=== PATIENT | male | born 1955 | race Caucasian/White ===

== ENCOUNTER 2016-09-23 17:07 | Emergency (ER) | payer OTHER ==
[~2016-09-23] VITALS: Ht 193 cm; Wt 107.5 kg
[~2016-09-23 17:07] MED LIST: ACID REDUCER 1150 MG PO; ADVAIR 250/501 DISK IH; ADVAIR HFA120 INHAL1 IH; AMIODARONE HCL200 MG PO; AMOX TR-K CLV1 EAC4 PO; ASPIR-LOW81 MG PO; ASPIR-TRIN325 M1 PO; ASPIRIN EC325 MG PO; ASPIRIN325 MG PO; ATROVENT H200 INHALA IH; Advair 250/50 Diskus IH; Avelox PO; BACLOFEN10 MG PO; BACTRIM,SEPT1 TABLET PO; CARDIZEM CD,CA240 MG PO; CARDIZEM CD,CA360 MG PO; CARDIZEM CD240 MG PO; CARDIZEM120 MG PO; CARDIZEM60 MG PO; CARDIZEM90 MG PO; CHLORDIAZEPOXID25 MG PO; CIPRO500 MG PO; CYTOTEC200 MCG PO; Cardizem CD,Cartia X PO; Cardizem CD,LA,Cartia,Tiazac,Dilacor,Taztia PO; Ceftin PO; Cytotec PO; DAILY VITAMIN1 EAC8 PO; DESYREL 150 MG150 MG PO; DESYREL12.5 MG; DIGOX250 MCG PO; DIGOXIN250 MCG PO; DILAUDID2 MG PO; DILTIAZEM 24HR240 MG PO; DILTIAZEM HCL360 MG PO; DULERA 100 MCG/13 GM IH; DULERA 200 MCG/13 GM IH; EFFEXOR XR75 MG PO; ENDOCET 5-3251 EACH PO; Ecotrin PO; FENTANYL1 EAC1 TD; FENTANYL1 EAC5 TD; FISH OIL 1,0001 EAC7 PO; FISH OIL 1,2001 EAC3 PO; FLEXERIL10 MG PO; FOLIC ACID1 MG PO; Fish Oil PO; Flonase NS; Folvite PO; GABAPENTIN300 MG PO; GABAPENTIN600 MG PO; GABAPENTIN800 MG PO; HYDROMORPHONE HC2 MG PO; INHALER; KADIAN30 MG PO; LEVAQUIN750 MG PO; LEVOFLOXACIN750 MG PO; LIBRIUM10 MG PO; LIBRIUM25 MG PO; LIDOCAINE700 MG TD; LISINOPRIL5 MG PO; LO-DOSE ASPIRIN81 M1 PO; LOPRESSOR12.5 MG PO; LOPRESSOR25 MG PO; LOPRESSOR50 MG PO; Lanoxin,Digitek PO; Librium PO; Lopressor PO; MAGNESIUM200 MG PO; MAGOX 400400 MG PO; MELOXICAM15 MG PO; METOPROLOL SUCC25 MG PO; METOPROLOL SUCC50 MG PO; METOPROLOL TART25 MG PO; METOPROLOL TART50 MG PO; MISOPROSTOL200 MCG PO; MORPHINE SULFAT15 M1 PO; MOTRIN600 MG PO; MOTRIN800 MG PO; MULTAQ400 MG PO; Mobic PO; NOHOMEMEDS; NORVASC5 MG PO; Neurontin PO; Norvasc PO; OMEPRAZOLE40 M1 PO; ONE-A-DAY ESSE1 EAC1 PO; OXCARBAZEPINE600 MG PO; PANTOPRAZOLE SO40 MG PO; PEPCID20 MG PO; PERCOCET 5/31 TABLET PO; PERCOCET 7.51 TABLET PO; PREDNISONE20 MG PO; PRILOSEC40 MG PO; PROZAC20 MG PO; PROzac PO; Percocet 5/325,Endoc PO; Proventil,Ventolin H IH; RANITIDINE HCL150 MG PO; ROXICET 5-3251 EACH PO; SERTRALINE HCL50 MG PO; SINGULAIR10 MG PO; ST. JOSEPH ASPI81 M1 PO; STOOL SOFTENER100 MG PO; THERAGRAN1 TABLET PO; TOPAMAX50 MG PO; TOPIRAMATE25 MG PO; TOPIRAMATE50 MG PO; TOPROL XL50 MG PO; TRAMADOL HCL50 MG PO; TRAZODONE HCL150 MG PO; TRAZODONE HCL50 MG PO; TRILEPTAL600 MG PO; Thiamine,Vitamin B1 PO; Topamax PO; Trileptal PO; ULTRAM50 MG PO; VENLAFAXINE HCL75 M3 PO; VENLAFAXINE HCL75 MG PO; VITAMIN B-1100 MG PO; XARELTO15 MG PO; XARELTO20 MG PO; Xarelto PO; ZANAFLEX4 M1 PO; ZANTAC150 MG PO; ZOFRAN4 MG PO; ZOLOFT100 MG PO; ZOLOFT50 MG PO; Zithromax PO; Zoloft PO; [UNRECOGNIZED DRUG - OTHER] PO
[2016-09-23 17:59] LABS: HEMATOCRIT 44.6 % (38.0-50.0); MCH 31.3 PG (29.0-34.0); MCHC 33.9 G/DL (30.0-36.0); MCV 92.5 FL (86-99); MEAN PLAT.VOLUME 11.8 uM^3 (9.0-12.4); PLATELET COUNT 101 K/uL (156-360); RBC DIS.WIDTH-CV 15.2 % (11.8-14.6); RBC DIS.WIDTH-SD 51.8 % (39-53); RED BLOOD COUNT 4.82 M/uL (4.00-5.50); WHITE BLOOD COUNT 4.2 K/uL (4.1-10.2)
[2016-09-23 18:06] LABS: CHLORIDE 105 mEq/L (99-109); POTASSIUM 3.9 mEq/L (3.7-5.4); SODIUM 137 mEq/L (136-147)
[2016-09-23 18:08] LABS: GLUCOSE 87 mg/dL (70-99)
[2016-09-23 18:10] LABS: ANION GAP 10 MEQ/L (2-14); TOTAL BILIRUBIN 1.2 mg/dL (0.0-1.0)
[2016-09-23 18:11] LABS: SERUM ETHYL ALCOHOL 87 mg/dL
[2016-09-23 18:12] LABS: ALKALINE PHOSPHATASE 141 IU/L (3-129); GFR ESTIMATE (CALCULATED) > 59 mL/min/
[2016-09-23 18:13] LABS: UREA NITROGEN (BUN) 10 mg/dL (9-23)
[2016-09-23 18:15] LABS: LIPASE 50 U/L (1.0-51.0)
[2016-09-23] MEDS ORDERED: LIBRIUM25 MG PO (21:30)
[2016-09-23 21:57] VITALS: BP 144/94
== END 2016-09-23 21:59 | disposition home or self-care (01) ==
LOC: EME 17:07
PROVIDERS: Emergency Medicine
DX: F10.239 Alcohol dependence with withdrawal, unspecified (principal); J44.9 Chronic obstructive pulmonary disease, unspecified; J45.909 Unspecified asthma, uncomplicated; F31.9 Bipolar disorder, unspecified; I10 Essential (primary) hypertension; K21.9 Gastro-esophageal reflux disease without esophagitis; I48.91 Unspecified atrial fibrillation; Z79.01 Long term (current) use of anticoagulants; Z86.73 Personal history of transient ischemic attack (TIA), and cerebral infarction without residual deficits; F17.200 Nicotine dependence, unspecified, uncomplicated
CPT/HCPCS: 80053; 83690; 85027; 93005; 99281; 99285; G0480; J2405; J3360; J7030

== ENCOUNTER 2017-01-24 20:42 | Emergency (ER) | payer OTHER ==
[~2017-01-24] VITALS: Ht 185.4 cm; Wt 118.1 kg
[2017-01-24 21:16] VITALS: BP 106/82
== END 2017-01-24 23:55 | disposition left against medical advice (07) ==
LOC: EME 20:42 → RME 20:42
DX: R45.851 Suicidal ideations (principal); R07.9 Chest pain, unspecified; Z53.21 Procedure and treatment not carried out due to patient leaving prior to being seen by health care provider
CPT/HCPCS: 71020; 80048; 80053; 81003; 83690; 84484; 85027; 93005; G0480

== ENCOUNTER 2017-02-15 09:35 | Emergency (ER) | payer OTHER ==
[~2017-02-15] VITALS: Ht 193 cm; Wt 109.4 kg
[2017-02-15 15:14] LABS: BASOPHIL COUNT 0.1 K/uL (0-0.1); EOSINOPHIL (%) 1.8 % (0-5); EOSINOPHIL COUNT 0.1 K/uL (0-0.3); HEMATOCRIT 45.4 % (38.0-50.0); IMMATURE GRANULOCYTE (%) 0.4 % (0.0-0.7); INSTRUMENT ABS NEUTROPHIL CT 2.8 K/uL; MCH 31.4 PG (29.0-34.0); MCHC 33.3 G/DL (30.0-36.0); MCV 94.4 FL (86-99); MEAN PLAT.VOLUME 10.8 uM^3 (9.0-12.4); MONOCYTE (%) 12.9 % (3-12); MONOCYTE COUNT 0.7 K/uL (0-0.8); NEUTROPHIL (%) 48.9 % (45-76); NEUTROPHIL COUNT 2.8 K/uL (1.8-6.4); PLATELET COUNT 238 K/uL (156-360); RBC DIS.WIDTH-CV 14.6 % (11.8-14.6); RBC DIS.WIDTH-SD 50.9 % (39-53); RED BLOOD COUNT 4.81 M/uL (4.00-5.50); WHITE BLOOD COUNT 5.6 K/uL (4.1-10.2)
[2017-02-15 15:23] LABS: CHLORIDE 110 mEq/L (99-109); POTASSIUM 3.4 mEq/L (3.7-5.4); SODIUM 148 mEq/L (136-147)
[2017-02-15 15:24] LABS: GLUCOSE 120 mg/dL (70-99)
[2017-02-15 15:26] LABS: ANION GAP 13 MEQ/L (2-14)
[2017-02-15 15:28] LABS: GFR ESTIMATE (CALCULATED) > 59 mL/min/
[2017-02-15 15:29] LABS: UREA NITROGEN (BUN) 8 mg/dL (9-23)
[2017-02-15 17:54] LABS: ADD MEDTOX COMMENT Y; AMPHETAMINE NEGATIVE (500 ng/mL); BARBITURATES NEGATIVE (200 ng/mL); BENZODIAZEPINES PRESUMPTIVE POSITIVE (150 ng/mL); COCAINE NEGATIVE (150 ng/mL); INTERNAL CONTROLS VALID? YES; METHADONE NEGATIVE (200 ng/mL); METHAMPHETAMINE NEGATIVE (500 ng/mL); OPIATES (MORPHINE) NEGATIVE (100 ng/mL); OXYCODONE NEGATIVE (100 ng/mL); PHENCYCLIDINE NEGATIVE (25 ng/mL); PROPOXYPHENE NEGATIVE (300 ng/mL); THC CANNABINOIDS NEGATIVE (50 ng/mL); TRICYCLIC ANTIDEPRESSANTS NEGATIVE (300 ng/mL)
[2017-02-15 18:23] LABS: BENZODIAZEPINES, URINE SCREEN POSITIVE (200 ng/mL)
[2017-02-15 21:27] VITALS: BP 117/76
== END 2017-02-15 21:28 | disposition home or self-care (01) ==
LOC: EME 09:35
PROVIDERS: Emergency Medicine
DX: F10.129 Alcohol abuse with intoxication, unspecified (principal); S50.811A Abrasion of right forearm, initial encounter; S50.312A Abrasion of left elbow, initial encounter; S00.01XA Abrasion of scalp, initial encounter; R45.851 Suicidal ideations; W10.9XXA Fall (on) (from) unspecified stairs and steps, initial encounter; Y90.8 Blood alcohol level of 240 mg/100 ml or more; M79.631 Pain in right forearm; F31.9 Bipolar disorder, unspecified; J44.9 Chronic obstructive pulmonary disease, unspecified; I10 Essential (primary) hypertension; I25.2 Old myocardial infarction; K21.9 Gastro-esophageal reflux disease without esophagitis; F41.9 Anxiety disorder, unspecified; Z86.73 Personal history of transient ischemic attack (TIA), and cerebral infarction without residual deficits; Z86.718 Personal history of other venous thrombosis and embolism; F17.200 Nicotine dependence, unspecified, uncomplicated
CPT/HCPCS: 70450; 71020; 72125; 73090; 73110; 80048; 84999; 85025; 90839; 99281; 99285; G0480; J7040

== ENCOUNTER 2017-02-21 16:01 | Inpatient (IN) | payer OTHER ==
[~2017-02-21] VITALS: Ht 188 cm; Wt 117.1 kg
[~2017-02-21 16:01] MED LIST changes: +DILTIAZEM 24HR120 MG PO; +NEURONTIN400 MG PO
[2017-02-21 17:09] LABS: AMPHETAMINE NEGATIVE (500 ng/mL); BARBITURATES NEGATIVE (200 ng/mL); BENZODIAZEPINES PRESUMPTIVE POSITIVE (150 ng/mL); COCAINE NEGATIVE (150 ng/mL); INTERNAL CONTROLS VALID? YES; METHADONE NEGATIVE (200 ng/mL); METHAMPHETAMINE NEGATIVE (500 ng/mL); OPIATES (MORPHINE) NEGATIVE (100 ng/mL); OXYCODONE NEGATIVE (100 ng/mL); PHENCYCLIDINE NEGATIVE (25 ng/mL); PROPOXYPHENE NEGATIVE (300 ng/mL); THC CANNABINOIDS NEGATIVE (50 ng/mL); TRICYCLIC ANTIDEPRESSANTS NEGATIVE (300 ng/mL)
[2017-02-21 17:10] LABS: ADD MEDTOX COMMENT Y; ADD MIUA? NO; BILIRUBIN NEGATIVE; BLOOD NEGATIVE; COLOR STRAW ((YELLOW)); GLUCOSE (STRIP) NEGATIVE; KETONES NEGATIVE; LEUKOCYTES NEGATIVE; NITRITE NEGATIVE; PROTEIN (STRIP) NEGATIVE; SPECIFIC GRAVITY 1.009 (1.000-1.030); UROBILINOGEN 0.2 MG/DL (0.2-1.0)
[2017-02-21 17:12] LABS: BASOPHIL COUNT 0.1 K/uL (0-0.1); EOSINOPHIL (%) 2.6 % (0-5); EOSINOPHIL COUNT 0.2 K/uL (0-0.3); HEMATOCRIT 43.8 % (38.0-50.0); IMMATURE GRANULOCYTE (%) 0.3 % (0.0-0.7); LYMPHOCYTE COUNT 1.9 K/uL (1.0-2.8); MCH 31.7 PG (29.0-34.0); MCHC 33.3 G/DL (30.0-36.0); MEAN PLAT.VOLUME 10.9 uM^3 (9.0-12.4); MONOCYTE (%) 5.7 % (3-12); MONOCYTE COUNT 0.4 K/uL (0-0.8); NEUTROPHIL (%) 61.6 % (45-76); PLATELET COUNT 241 K/uL (156-360); RBC DIS.WIDTH-CV 14.9 % (11.8-14.6); RBC DIS.WIDTH-SD 51.7 % (39-53); RED BLOOD COUNT 4.61 M/uL (4.00-5.50); WHITE BLOOD COUNT 6.5 K/uL (4.1-10.2)
[2017-02-21 17:25] LABS: CHLORIDE 111 mEq/L (99-109); SODIUM 143 mEq/L (136-147)
[2017-02-21 17:26] LABS: GLUCOSE 94 mg/dL (70-99)
[2017-02-21 17:27] LABS: POTASSIUM 4.2 mEq/L (3.7-5.4)
[2017-02-21 17:28] LABS: ANION GAP 16 MEQ/L (2-14)
[2017-02-21 17:30] LABS: GFR ESTIMATE (CALCULATED) > 59 mL/min/
[2017-02-21 17:32] LABS: UREA NITROGEN (BUN) 14 mg/dL (9-23)
[2017-02-21 17:35] LABS: BENZODIAZEPINES QUANT VALUE 0 NG/ML; BENZODIAZEPINES, URINE SCREEN Negative (200 ng/mL)
[2017-02-21 18:12] LABS: SERUM ETHYL ALCOHOL 189 mg/dL
[2017-02-22] VITALS (17 sets, daily range): BP systolic 104–144; BP diastolic 62–91
[2017-02-22 03:18] LABS: POINT-OF-CARE METER ID UU13113702
[2017-02-22 03:32] LABS: CHLORIDE 113 mEq/L (99-109); POTASSIUM 3.7 mEq/L (3.7-5.4); SODIUM 143 mEq/L (136-147)
[2017-02-22 03:33] LABS: MAGNESIUM 1.6 mg/dL (1.3-2.7)
[2017-02-22 03:35] LABS: ANION GAP 10 MEQ/L (2-14)
[2017-02-22 03:37] LABS: GLUCOSE 144 mg/dL (70-99)
[2017-02-22 03:38] LABS: GFR ESTIMATE (CALCULATED) > 59 mL/min/
[2017-02-22 03:39] LABS: UREA NITROGEN (BUN) 14 mg/dL (9-23)
[2017-02-22 03:41] LABS: SALICYLATE < 5.0 MG/DL (15-30)
[2017-02-22 04:03] LABS: POINT-OF-CARE METER ID UU13113702
[2017-02-22 07:13] LABS: METH RESISTANT S AUREUS PCR NEGATIVE (NEGATIVE)
[2017-02-22 07:19] LABS: PROBE CHECK PASS; SPECIMEN PROCESSING CONTROL PASS
[2017-02-22 15:00] LABS: EOSINOPHIL (%) 1.7 % (0-5); EOSINOPHIL COUNT 0.1 K/uL (0-0.3); HEMATOCRIT 37.6 % (38.0-50.0); IMMATURE GRANULOCYTE (%) 0.3 % (0.0-0.7); INSTRUMENT ABS NEUTROPHIL CT 5.1 K/uL; LYMPHOCYTE COUNT 1.5 K/uL (1.0-2.8); MCH 32.7 PG (29.0-34.0); MCHC 33.8 G/DL (30.0-36.0); MCV 96.9 FL (86-99); MEAN PLAT.VOLUME 11.4 uM^3 (9.0-12.4); MONOCYTE (%) 6.2 % (3-12); MONOCYTE COUNT 0.5 K/uL (0-0.8); NEUTROPHIL (%) 70.2 % (45-76); NEUTROPHIL COUNT 5.1 K/uL (1.8-6.4); PLATELET COUNT 189 K/uL (156-360); RBC DIS.WIDTH-CV 14.7 % (11.8-14.6); RBC DIS.WIDTH-SD 52.4 % (39-53); RED BLOOD COUNT 3.88 M/uL (4.00-5.50); WHITE BLOOD COUNT 7.2 K/uL (4.1-10.2)
[2017-02-23] VITALS (13 sets, daily range): BP systolic 0–148; BP diastolic 0–100
[2017-02-23 06:51] LABS: ALKALINE PHOSPHATASE 63 IU/L (3-129); ANION GAP 8 MEQ/L (2-14); CHLORIDE 111 MEQ/L (99-109); GFR ESTIMATE (CALCULATED) > 59 mL/min/; MAGNESIUM 1.6 mg/dl (1.3-2.7); POTASSIUM 3.9 MEQ/L (3.7-5.4); SAMPLE HEMOLYSIS CHECK 0; SAMPLE ICTERIC CHECK 0; SAMPLE LIPEMIA CHECK 0; SODIUM 141 MEQ/L (136-147); TOTAL BILIRUBIN 0.3 MG/DL (0.0-1.0); UREA NITROGEN (BUN) 10 mg/dL (9-23)
[2017-02-23 06:54] LABS: GLUCOSE 86 mg/dL (70-99)
[2017-02-23] MEDS ORDERED: CENTRUM ADULTS1 EACH PO (11:46)
[2017-02-23] MEDS ORDERED: FISH OIL 1,001000 M2 PO (11:47)
[2017-02-23] MEDS ORDERED: EFFEXOR XR150 MG PO (11:48)
[2017-02-23] MEDS ORDERED: PROTONIX40 MG PO (11:48)
[2017-02-23] MEDS ORDERED: RISPERDAL1 MG PO (11:49)
[2017-02-23] MEDS ORDERED: DILAUDID2 MG PO (11:50)
[2017-02-24 00:04] VITALS: BP 123/74
[2017-02-24 03:58] VITALS: BP 133/91
[2017-02-24 07:24] VITALS: BP 134/90
[2017-02-24 08:59] LABS: HEMATOCRIT 42.8 % (38.0-50.0); MCHC 32.7 G/DL (30.0-36.0); MCV 97.7 FL (86-99); MEAN PLAT.VOLUME 11.7 uM^3 (9.0-12.4); PLATELET COUNT 192 K/uL (156-360); RBC DIS.WIDTH-CV 14.9 % (11.8-14.6); RBC DIS.WIDTH-SD 53.9 % (39-53); RED BLOOD COUNT 4.38 M/uL (4.00-5.50); WHITE BLOOD COUNT 4.6 K/uL (4.1-10.2)
[2017-02-24 09:25] LABS: ANION GAP 5 MEQ/L (2-14); CHLORIDE 107 MEQ/L (99-109); GFR ESTIMATE (CALCULATED) > 59 mL/min/; GLUCOSE 83 mg/dL (70-99); POTASSIUM 4.3 MEQ/L (3.7-5.4); SAMPLE HEMOLYSIS CHECK 0; SAMPLE ICTERIC CHECK 0; SAMPLE LIPEMIA CHECK 0; SODIUM 139 MEQ/L (136-147); UREA NITROGEN (BUN) 9 mg/dL (9-23)
[2017-02-24 16:19] VITALS: BP 134/88
[2017-02-24 19:15] VITALS: BP 130/76
[2017-02-24 23:54] VITALS: BP 133/75
[2017-02-25 08:20] VITALS: BP 121/67
[2017-02-25 17:31] VITALS: BP 129/74
[2017-02-25 22:27] VITALS: BP 136/74
[2017-02-26 08:15] VITALS: BP 116/71
[2017-02-26 15:58] VITALS: BP 120/74
[2017-02-26 23:23] VITALS: BP 121/81
[2017-02-27 07:44] LABS: ANION GAP 8 MEQ/L (2-14); CHLORIDE 105 MEQ/L (99-109); GFR ESTIMATE (CALCULATED) > 59 mL/min/; GLUCOSE 86 mg/dL (70-99); POTASSIUM 4.3 MEQ/L (3.7-5.4); SAMPLE HEMOLYSIS CHECK 0; SAMPLE ICTERIC CHECK 0; SAMPLE LIPEMIA CHECK 0; SODIUM 139 MEQ/L (136-147); UREA NITROGEN (BUN) 20 mg/dL (9-23)
[2017-02-27 08:27] VITALS: BP 106/69
[2017-02-27 10:00] LABS: TROP-I INTERPRETATION NEGATIVE; TROPONIN-I < 0.01 ng/mL (0.0-0.30)
[2017-02-27 17:18] VITALS: BP 108/70
[2017-02-27 23:06] VITALS: BP 121/70
[2017-02-28 07:50] VITALS: BP 107/61
[2017-02-28 15:47] VITALS: BP 112/68
[2017-02-28 23:37] VITALS: BP 108/58
[2017-03-01 05:35] LABS: HEMATOCRIT 42.9 % (38.0-50.0); MCH 31.2 PG (29.0-34.0); MCHC 31.2 G/DL (30.0-36.0); MEAN PLAT.VOLUME 11.5 uM^3 (9.0-12.4); PLATELET COUNT 188 K/uL (156-360); RBC DIS.WIDTH-CV 14.7 % (11.8-14.6); RED BLOOD COUNT 4.29 M/uL (4.00-5.50); WHITE BLOOD COUNT 5.1 K/uL (4.1-10.2)
[2017-03-01 06:09] LABS: ANION GAP 8 MEQ/L (2-14); CHLORIDE 104 MEQ/L (99-109); GFR ESTIMATE (CALCULATED) 55 mL/min/; POTASSIUM 4.4 MEQ/L (3.7-5.4); SAMPLE HEMOLYSIS CHECK 0; SAMPLE ICTERIC CHECK 0; SAMPLE LIPEMIA CHECK 0; SODIUM 140 MEQ/L (136-147); UREA NITROGEN (BUN) 19 mg/dL (9-23)
[2017-03-01 06:15] LABS: GLUCOSE 120 mg/dL (70-99)
[2017-03-01 07:09] VITALS: BP 110/61
[2017-03-01] MEDS ORDERED: NICOTINE PATCH1 EAC2 TD (10:31)
[2017-03-01] MEDS ORDERED: CHLORDIAZEPOXID25 MG PO (10:42)
[2017-03-01 15:10] VITALS: BP 120/72
[2017-03-01 23:24] VITALS: BP 114/58
[2017-03-02 07:06] VITALS: BP 119/72
[2017-03-02] MEDS ORDERED: CEPHALEXIN500 MG PO (11:13)
[2017-03-02] MEDS ORDERED: TOPAMAX100 MG PO (11:13)
[2017-03-07 14:37] LABS: RESEND RESULTS RESEND RESULTS
== END 2017-03-02 12:27 | DRG 918 ==
LOC: EME 16:01 → 5SOUTH 02-22 03:46 → EDOF 02-22 03:46 → 4WEST 02-22 03:46 → ENRESERV 02-22 03:49 → 4WEST 02-22 05:45 → ENRESERV 02-23 14:52 → 5SOUTH 02-23 17:30 → ENPENDDIS 03-02 → 5SOUTH 03-02 12:27
PROVIDERS: Emergency Medicine; Internal Medicine; Physician Assistant Medical; Specialist; Surgery
DX: T46.1X2A Poisoning by calcium-channel blockers, intentional self-harm, initial encounter (principal); T43.212A Poisoning by selective serotonin and norepinephrine reuptake inhibitors, intentional self-harm, initial encounter; G47.33 Obstructive sleep apnea (adult) (pediatric); Z86.711 Personal history of pulmonary embolism; R53.1 Weakness; I95.9 Hypotension, unspecified; F17.200 Nicotine dependence, unspecified, uncomplicated; F10.239 Alcohol dependence with withdrawal, unspecified; E83.42 Hypomagnesemia; R00.1 Bradycardia, unspecified; I48.0 Paroxysmal atrial fibrillation; I25.2 Old myocardial infarction; E86.1 Hypovolemia; F31.9 Bipolar disorder, unspecified; F43.20 Adjustment disorder, unspecified; G89.29 Other chronic pain; Z86.718 Personal history of other venous thrombosis and embolism; Z87.820 Personal history of traumatic brain injury; K21.9 Gastro-esophageal reflux disease without esophagitis; J44.9 Chronic obstructive pulmonary disease, unspecified; I82.612 Acute embolism and thrombosis of superficial veins of left upper extremity; T80.1XXA Vascular complications following infusion, transfusion and therapeutic injection, initial encounter; L03.114 Cellulitis of left upper limb; Y84.8 Other medical procedures as the cause of abnormal reaction of the patient, or of later complication, without mention of misadventure at the time of the procedure; Y92.239 Unspecified place in hospital as the place of occurrence of the external cause; M17.0 Bilateral primary osteoarthritis of knee; I80.8 Phlebitis and thrombophlebitis of other sites; N18.9 Chronic kidney disease, unspecified; I12.9 Hypertensive chronic kidney disease with stage 1 through stage 4 chronic kidney disease, or unspecified chronic kidney disease; F41.9 Anxiety disorder, unspecified; G43.909 Migraine, unspecified, not intractable, without status migrainosus
CPT/HCPCS: 73030; 80048; 80053; 81003; 82330; 82948; 83605; 83735; 84100; 84484; 84999; 85025; 85027; 87641; 90839; 93005; 93971; 94660; 94799; 99281; 99285; G0480; J0610; J1170; J1644; J1650; J2060; J2405; J3411; J3475; J7030; J7050